=== PATIENT | male | born 1995 | race Caucasian/White ===

== ENCOUNTER 2017-03-30 23:49 | Emergency (ER) | payer OTHER ==
[~2017-03-30] VITALS: Ht 182.9 cm; Wt 81.1 kg
[2017-03-31 00:15] VITALS: BP 119/62; PULSE 60; RESP 18; TEMP 97.9; O2SAT 99
[2017-03-31 03:50] VITALS: BP 121/65; PULSE 62; RESP 16; O2SAT 99
== END 2017-03-31 04:54 | disposition left against medical advice (07) ==
LOC: PHED 23:49
DX: Z53.21 Procedure and treatment not carried out due to patient leaving prior to being seen by health care provider (principal)
CPT/HCPCS: 99281